=== PATIENT | male | born 1960 | race Two or more races ===

== ENCOUNTER 2020-04-10 15:00 | Outpatient (CLI) | payer OTHER ==
[2020-04-10] VITALS (7 sets, daily range): BP systolic 133–154; BP diastolic 72–82
[2020-04-10] MEDS ORDERED: BAMLANIVIMAB 700MG/200ML 200 ML IV ONE (15:30)
== END 2020-04-10 16:00 | disposition home or self-care (01) ==
LOC: ER 15:00
PROVIDERS: ATTEND Internal Medicine
DX: Z23 Encounter for immunization (principal); U07.1 COVID-19
CPT/HCPCS: M0239; Q0239